=== PATIENT | female | born 1995 | race Caucasian/White ===

== ENCOUNTER 2018-07-24 10:21 | Emergency (ER) | payer OTHER ==
--- NOTE | 2018-07-24 11:13 | RAD ---
RADIOGRAPH RIGHT FOOT 3 VIEWS: DATE: 07/24/2018. HISTORY: A 22-year-old female status post acute blunt trauma to the right foot. FINDINGS: Visible only on the AP view there is a transversely oriented linear fracture lucency at the lateral a spect of the proximal metaphysis of the 5th metatarsal. There is no displaced fracture. No dislocat ion. IMPRESSION: Acute, traumatic, nondisplaced Oswald fracture or avulsion fracture at the base of the 5th metatarsal. POS: [facility]
== END 2018-07-24 11:16 | disposition home or self-care (01) ==
LOC: SCSER 10:21
DX: S92.354A Nondisplaced fracture of fifth metatarsal bone, right foot, initial encounter for closed fracture (principal); F41.9 Anxiety disorder, unspecified; W22.8XXA Striking against or struck by other objects, initial encounter

== ENCOUNTER 2019-04-07 09:54 | Emergency (ER) | payer OTHER ==
[~2019-04-07 09:54] MED LIST: Iopamidol 370 76% 100 ML VIAL ONE
[2019-04-07 10:20] LABS: Bilirubin Small (Negative); Blood, Urine Large (Negative); Glucose, Urine (Dipstick) 100 mg/dL (Negative); Leukocyte Negative (Negative); Nitrite Negative (Negative); Protein, Urine (Dipstick) 30 mg/dL (Neg-Trace); Urobilinogen 0.2 mg/dL (Less than 2)
[2019-04-07 10:22] LABS: Clarity Slightly Cloudy (Clear)
[2019-04-07 10:24] LABS: Bacteria/HPF None Seen HPF (None Seen); Other Microscopic Description Less than 2 mL rec'd; Squamous Epithelial None Seen HPF (0-3); WBC/HPF None Seen HPF (0-3)
[2019-04-07] MEDS ORDERED: Ondansetron PF 4 MG/2 ML Vial ONE (10:30)
[2019-04-07] MEDS ORDERED: Fentanyl 100 MCG/2 ML VIAL ONE (10:30)
[2019-04-07 10:37] LABS: #Basophils 0.1 thou/uL (0.0-0.2); #Lymphocytes 2.2 thou/uL (1.20-3.40); #Monocytes 0.3 thou/uL (0.11-0.59); #Neutrophils 7.4 thou/uL (1.40-6.50); %Basophils 0.6 % (0.0-1.0); %Eosinophils 0.5 % (0.0-10.0); %Lymphocytes 21.9 % (21.0-51.0); %Monocytes 2.9 % (0.0-10.0); %Neutrophils 74.1 % (42.0-75.0); Hemoglobin 13.8 g/dL (12.0-16.0); Mean Corpuscular HGB CONC 32.9 g/dL (32.0-36.0); Mean Corpuscular Hemoglobin 27.8 pg (27.0-31.0); Mean Corpuscular Volume 84.5 fL (78.0-98.0); Mean Platelet Volume 6.6 fL (7.4-10.4); Platelet Count 379 thou/uL (130-400); RBC Distribution Width 12.7 % (11.5-14.5); Red Blood Cell (RBC) Count 4.97 mill/uL (4.20-5.40)
[2019-04-07 10:40] LABS: ALT (SGPT) 49 U/L (8-55); AST (SGOT) 30 U/L (5-34); Albumin 4.9 g/dL (3.5-5.0); Alkaline Phosphatase 161 U/L (40-150); Anion Gap 16 mmol/L (10-20); BUN (Urea Nitrogen) 11 mg/dL (7.0-18.7); Bilirubin, Total 0.8 mg/dL (0.2-1.2); Calc. Creatinine Clearance 0 mL/min (70-130); Calcium 10.3 mg/dL (7.8-10.44); Carbon Dioxide 23 mmol/L (22-29); Chloride 105 mmol/L (98-107); Estimated GFR-MDRD Greater than 90; Globulin 3.7 g/dL (2.4-3.5); Glucose 117 mg/dL (70-105); Lipase 5 U/L (8-78); Potassium 3.7 mmol/L (3.5-5.1); Protein, Total 8.6 g/dL (6.0-8.3); Sodium 140 mmol/L (136-145)
[2019-04-07 10:44] LABS: BHCG - Serum Negative (NEGATIVE); Pregs Control Background? CLEAR/WHITE (CLR/WHITE); Pregs Control Bar Appear? YES (CONTROL BAR)
--- NOTE | 2019-04-07 11:57 | CT ---
ABDOMEN AND PELVIS CT WITH CONTRAST: Date: 04/07/19 INDICATION: Abdominal pain, 23-year-old female. FINDINGS: Minimal subpleural nodularity of the left lung base favors atelectasis. There is abnormal ductal prom inence within the liver, near the junction of the left and right hepatic lobes, and traversing the po sterior segment right hepatic lobe, not further characterized on the basis of this exam. Spleen is un remarkable. No acute abnormality of the kidneys or adrenal glands. No pancreatic inflammation. Unopac ified bowel is nondilated. There is mild to moderate pelvic ascites, which is nonspecific, although m ay be related to ruptured hemorrhagic follicle of the right adnexa given heterogeneity of this region . There is no pneumoperitoneum. Abdominal aorta is normal in caliber. Osseous structures are intact w here visualized. IMPRESSION: 1. Abnormal intrahepatic biliary ductal prominence as above. Recommend follow-up with gastroenterolo gy consultation, as well as hepatic mass protocol MRI abdomen. 2. Probable ruptured hemorrhagic follicle of the right adnexa with mild to moderate free pelvic flui d. POS: [place]
[2019-04-07] MEDS ORDERED: Piperacillin/Tazobactam 4.5 GM VIAL ONE (13:00)
[2019-04-07] MEDS ORDERED: Sodium Chloride 0.9% 100 ML ONE (13:01)
--- NOTE | 2019-04-07 13:21 | ULT ---
RIGHT UPPER QUADRANT ULTRASOUND CLINICAL HISTORY: Right upper quadrant pain. COMPARISON: None FINDINGS: Liver:Normal echotexture without focal mass. Bile ducts: No intrahepatic or extrahepatic biliary dilation.; common bile duct: 0.34cm. Gallbladder: Normal appearing. Petersen's sign:None Main portal vein:Patent with hepatopedal flow. Pancreas: Visualized pancreas appears normal. Right kidney: No pelvicalyceal dilatation. Right kidney measures 10.0 x 4.9 x 4.3 cm. Additional findings: None. IMPRESSION: Normal RUQ ultrasound.
== END 2019-04-07 14:29 | disposition home or self-care (01) ==
LOC: SCSER 09:54
DX: N83.209 Unspecified ovarian cyst, unspecified side (principal); F41.9 Anxiety disorder, unspecified; Z79.51 Long term (current) use of inhaled steroids
CPT/HCPCS: 74177; 76705; 80053; 81003; 81015; 83605; 83690; 84703; 85025; 87040; 96361; 96365; 96375; J2405; J2543; J3010; J3490; Q9967

== ENCOUNTER 2020-01-05 11:59 | Outpatient (CLI) | payer OTHER ==
--- NOTE | 2020-01-05 15:18 | CT ---
CT BRAIN WITHOUT CONTRAST: HISTORY: A 24-year-old female with abnormal vision, memory impairment. Sclerosing cholangitis. FINDINGS: No evidence of acute infarct, hemorrhage, midline shift, or abnormal extraaxial fluid collections is seen. The ventricular side is normal and the basilar cisterns patent. The bony calvarium is intact. The visualized paranasal sinuses and mastoid air cells are well aerated. IMPRESSION: No CT evidence of acute intracranial process. POS: [facility]
== END 2020-01-05 12:00 | disposition home or self-care (01) ==
LOC: SCSCT 11:59
PROVIDERS: ATTEND Internal Medicine
DX: K83.01 Primary sclerosing cholangitis (principal); R10.33 Periumbilical pain; R41.3 Other amnesia; H54.7 Unspecified visual loss
CPT/HCPCS: 70450

== ENCOUNTER 2020-07-30 12:56 | Outpatient (CLI) | payer OTHER ==
--- NOTE | 2020-07-30 15:11 | MRI ---
MRI BRAIN WITH AND WITHOUT CONTRAST: DATE: 07/30/2020 HISTORY: 24-year-old female with ICD-10: "G 43.109, complicated migraine." Multiple syncopal episodes TECHNIQUE: Multiplanar, multisequence MRI of the brain obtained pre and post IV injection of gadolinium based co ntrast agent. FINDINGS: The ventricles are normal in size and configuration. There is no midline shift or any other evidence of mass effect. There is no extra-axial fluid collection. There is no intra-axial signal abnormality, abnormal enhancement, mass, recent hemorrhage, or restricted diffusion. IMPRESSION: Normal
== END 2020-07-30 12:57 | disposition home or self-care (01) ==
LOC: EEG 12:56
PROVIDERS: ATTEND Nurse Practitioner Acute Care
DX: G43.109 Migraine with aura, not intractable, without status migrainosus (principal)
CPT/HCPCS: 70553; 95816